=== PATIENT | female | born 2000 | race Hispanic/Latino ===

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

== ENCOUNTER 2021-07-27 16:12 | Emergency (ER) | payer OTHER ==
--- NOTE | 2021-07-27 16:55 | ER ---
Nurse's Notes [facility] Name: Shady Dnois Age: 20 yrs Sex: Female : 2000 Arrival Date: 07/27/2021 Time: 16:16 Bed 9 Private MD: Diagnosis: Puncture wound without foreign body, left foot Presentation: 07/27 16:45 Chief complaint: Patient states: stepped on misael nail getting out of car; went through ld1 cro shoe. no bleeding at this time. Coronavirus screen: Vaccine status: Patient reports being unvaccinated. Client denies travel out of the [place] in the last 14 days. Ebola Screen: Patient negative for fever greater than or equal to 101.5 degrees Fahrenheit, and additional compatible Ebola Virus Disease symptoms Patient denies exposure to infectious person. Patient denies travel to an Ebola-affected area in the 21 days before illness onset. Initial Sepsis Screen: Does the patient meet any 2 criteria? No. Patient's initial sepsis screen is negative. Does the patient have a suspected source of infection? No. Patient's initial sepsis screen is negative. Risk Assessment: Do you want to hurt yourself or someone else? Patient reports no desire to harm self or others. Onset of symptoms was July 27, 2021. 16:45 Method Of Arrival: Ambulatory ld1 16:45 Acuity: OWEN 4 ld1 Triage Assessment: 16:47 General: Appears in no apparent distress. comfortable, slender, well groomed, well ld1 developed, well nourished, Behavior is calm, cooperative, appropriate for age. Pain: Complains of pain in right foot. REJECT OPENER: 16:47 LMP 06/2021 ld1 Historical: - PMHx: 16:46 UTI; ld1 - Immunization history:: Adult Immunizations up to date. - Social history:: Smoking status: Patient denies any tobacco usage or history of. Vital Signs: 16:45 BP 112 / 78; Pulse 78; Resp 18; Temp 98.7; Pulse Ox 100% ; Weight 54.43 kg; Height 5 ld1 ft. 9 in. (175.26 cm); Pain 2/10; 16:45 Body Mass Index 17.72 (54.43 kg, 175.26 cm) ld1 ED Course: 16:16 Patient arrived in ED. as 16:42 Tiago Marquez PA is PHCP. ld1 16:42 Ike Mercer MD is Attending Physician. ld1 16:46 Triage completed. ld1 16:47 Arm band placed on right wrist. EKG completed in triage. Results shown to MD. ld1 Administered Medications: 16:56 Drug: Tetanus-Diphtheria Toxoid Adult 0.5 ml {H[employer]ulic [employer] Installer: [employer]. Exp: ld1 12/03/2022. Lot #: [id number]. } Route: IM; Site: right deltoid; 16:56 Follow up: Response: No adverse reaction ld1 Outcome: 16:54 Discharge ordered by . [email or web address] 17:02 Patient left the ED. Signatures: Carlie Snow Shelby, RN RN Tiago Marquez PA PA jr8 Ingrid Chen RN RN ld1
--- NOTE | 2021-07-27 16:55 | EDPHYS ---
Physician Documentation [facility] Name: Shady Donis Age: 20 yrs Sex: Female : 2000 Arrival Date: 07/27/2021 Time: 16:16 Bed 9 Private MD: ED Physician Ike Mercer HPI: 07/27 16:56 This 20 yrs old Female presents to ER via Ambulatory with complaints of jr8 Puncture Wound To Foot - stepped on nail. 16:56 The complaints affect the left foot. Onset: The symptoms/episode began/occurred jr8 acutely, today. Associated signs and symptoms: The patient has no apparent associated signs or symptoms. Severity of symptoms: At their worst the symptoms were mild, in the emergency department the symptoms are unchanged. The patient has not experienced similar symptoms in the past. Patient stated that she was stepping out of her car and stepped on a nail causing puncture wound to the left foot. Was able to take the nail out without any problem.. 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 - Social history:: Smoking status: Patient denies any tobacco usage or history of. ROS: 16:56 MS/extremity: Positive for pain, puncture, swelling, tenderness, of the left foot. jr8 16:56 Skin: Positive for puncture. 16:56 All other systems are negative. jr8 Exam: 16:56 Constitutional: This is a well developed, well nourished patient who is awake, alert, jr8 and in no acute distress. Cardiovascular: Regular rate and rhythm with a normal S1 and S2. No gallops, murmurs, or rubs. Normal PMI, no JVD. No pulse deficits. Respiratory: Lungs have equal breath sounds bilaterally, clear to auscultation and percussion. No rales, rhonchi or wheezes noted. No increased work of breathing, no retractions or nasal flaring. Skin: Warm, dry with normal turgor. Normal color with no rashes, no lesions, and no evidence of cellulitis. Neuro: Awake and alert, GCS 15, oriented to person, place, time, and situation. Motor strength 5/5 in all extremities. Sensory grossly intact. 16:56 Musculoskeletal/extremity: Extremities: grossly normal except: noted in the left foot: Small puncture wound noted to the bottom aspect of the left foot near the ball of the foot. No bleeding at this time., ROM: intact in all extremities, Circulation is intact in all extremities. Sensation intact. Vital Signs: 16:45 BP 112 / 78; Pulse 78; Resp 18; Temp 98.7; Pulse Ox 100% ; Weight 54.43 kg; Height 5 ld1 ft. 9 in. (175.26 cm); Pain 2/10; 16:45 Body Mass Index 17.72 (54.43 kg, 175.26 cm) ld1 MDM: 16:50 Patient medically screened. jr8 16:51 Data reviewed: vital signs, nurses notes, and as a result, I will discharge patient. jr8 Data interpreted: Pulse oximetry: on room air is 100 %. Interpretation: normal. Counseling: I had a detailed discussion with the patient and/or guardian regarding: the historical points, exam findings, and any diagnostic results supporting the discharge/admit diagnosis, the need for outpatient follow up, a family practitioner, to return to the emergency department if symptoms worsen or persist or if there are any questions or concerns that arise at home. ED course: Close return precautions given to patient as puncture wound can become quite infected especially on bottom of foot. Will be on Abx for the time being and had tetanus updated. Patient good with this and will f/u or come back if worse . Administered Medications: 16:56 Drug: Tetanus-Diphtheria Toxoid Adult 0.5 ml {Quirk Sander: [employer]. Exp: ld1 12/03/2022. Lot #: [id number]. } Route: IM; Site: right deltoid; 16:56 Follow up: Response: No adverse reaction ld1 Disposition: 18:18 Co-signature as Attending Physician, Ike Mercer MD I agree with the assessment and rn plan of care. Attestation: The patient's history, exam findings, diagnostics, and a summary of any interventions or procedures was reviewed in detail with Tiago THORNTON. Disposition Summary: 07/27/21 16:54 Discharge [facility] Condition: Stable jr8 Diagnosis - Puncture wound without foreign body, left foot jr8 Followup: jr8 - With: Private Physician - When: 5 - 6 days - Reason: Wound Recheck, Recheck today's complaints, Continuance of care, Re-evaluation by your physician Discharge Instructions: - Discharge Summary Sheet jr8 - Puncture Wound jr8 Forms: - Medication Reconciliation Form jr8 - Thank You Letter jr8 - Antibiotic Education jr8 - Prescription Opioid Use jr8 Prescriptions: - Doxycycline Monohydrate 100 mg Oral Tablet - take 1 tablet by ORAL route every 12 hours for 10 days; 20 tablet; Refills: 0, jr8 Product Selection Permitted Signatures: Ike Mercer MD MD rn Roszak, Josh, PA PA jr8 Ingrid Chen RN RN ld1
[2021-07-27] MEDS ORDERED: TETANUS & DIPHTHERIA TOX,ADULT 0.5 ML VIAL ONE (16:56)
[2021-07-27 17:30] VITALS: BP 112/78; TEMP 98.7; O2SAT 100
== END 2021-07-27 17:02 | disposition home or self-care (01) ==
LOC: ER 16:12
DX: S91.332A Puncture wound without foreign body, left foot, initial encounter (principal); Z23 Encounter for immunization
CPT/HCPCS: 90471; 90714; 99282

== ENCOUNTER 2022-12-03 11:39 | Emergency (ER) | payer OTHER ==
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
[2022-12-03 14:39] VITALS: TEMP 97.9
[2022-12-03 14:41] VITALS: O2SAT 100
[2022-12-03 14:45] VITALS: BP 120/73
== END 2022-12-03 14:34 ==
LOC: ER 11:39
DX: O26.892 Other specified pregnancy related conditions, second trimester (principal); R10.2 Pelvic and perineal pain; O30.032 Twin pregnancy, monochorionic/diamniotic, second trimester; V49.50XA Passenger injured in collision with unspecified motor vehicles in traffic accident, initial encounter; Z3A.19 19 weeks gestation of pregnancy
CPT/HCPCS: 76815

== ENCOUNTER → 2023-09-21 | Emergency (ER) | payer OTHER ==
[~2023-09-21] MED LIST: FAMOTIDINE 20 MG/2 ML VIAL IV ONE; MORPHINE 4 MG/ML SYR ONE; NA CHLORIDE 0.9% 1,000 ML ONE; ONDANSETRON 4 MG/2 ML VIAL ONE
[2023-09-21 10:44] LABS: Absolute Lymphocytes (CBC) 1.3 K/uL (0.7-4.9); Basophils % 0.4 % (0-1.3); Hematocrit 39.1 % (36.0-45.0); Lymphocytes % 14.2 % (15.3-44.8); MCV 93.3 fL (80-100); MPV 8.8 fL (7.6-11.3); Platelets 304 thou/uL (152-406); RBC Red Blood Cell Count 4.19 M/uL (3.86-4.86)
[2023-09-21 11:06] LABS: Albumin 4.2 g/dL (3.4-5.0); Anion Gap 11.7 mEq/L (5.0-15.0); Bilirubin Total 0.4 mg/dL (0.2-1.0); Potassium 3.7 mEq/L (3.5-5.1); Protein, Total 8.3 g/dL (6.4-8.2)
[2023-09-21 12:23] LABS: Transitional Epithelial <5 /HPF (None Seen); Urine Bacteria <20 /HPF (<20); Urine Mucus Slight /HPF (None Seen); Urine RBC >50 /HPF (None Seen)
[2023-09-21 12:24] LABS: Specific Gravity 1.026 (1.005-1.030)
--- NOTE | 2023-09-21 12:44 | RAD REPORT ---
EXAM DESCRIPTION: CTAbdomen Pelvis W Contrast - 09/21/2023 12:32 pm CLINICAL HISTORY: ABD PAIN COMPARISON: No comparisons TECHNIQUE: CT of the abdomen and pelvis was performed with IV contrast. All CT scans are performed using dose optimization technique as appropriate and may include automated exposure control or mA/KV adjustment according to patient size. FINDINGS: Lower chest: No acute abnormality. Liver: No acute abnormality or suspicious lesions. Biliary: No biliary ductal dilatation. Stomach: No significant focal abnormality. Duodenum: No significant focal abnormality. Pancreas: No significant abnormality. Spleen: No significant abnormality. Adrenal: No suspicious lesions. Kidney/ureter: No hydronephrosis. No renal calculi. Retroperitoneum: No retroperitoneal adenopathy. Vascular: No aneurysm. Bowel: Pancolonic and recta wall thickening. Normal appendix . No bowel obstruction. Peritoneum: No ascites or free air. Bladder: Mild circumferential bladder wall thickening. Reproductive: No adnexal masses. Bones: No acute fracture. Other: n/a IMPRESSION: No acute intra-abdominal or pelvic finding. Normal appendix.
--- NOTE | 2023-09-21 13:01 | ER ---
Nurse's Notes [facility] Name: Shady Donis Age: 22 yrs Sex: Female : 2000 Arrival Date: 09/21/2023 Time: 10:26 Bed 2 Private MD: Diagnosis: Lower abdominal pain, unspecified;Nausea with vomiting, unspecified Presentation: 09/20 10:27 Chief complaint: EMS states: "toned out for LLQ pain, N/V/D that started this morning. mb9 Pt states she is currently on her period right now.". Coronavirus screen: Vaccine status: Patient reports being unvaccinated. Ebola Screen: No symptoms or risks identified at this time. Initial Sepsis Screen: Does the patient meet any 2 criteria? No. Patient's initial sepsis screen is negative. Does the patient have a suspected source of infection? No. Patient's initial sepsis screen is negative. Risk Assessment: Do you want to hurt yourself or someone else? Patient reports no desire to harm self or others. Onset of symptoms was September 21, 2023. 10:27 Method Of Arrival: EMS: [facility] mb9 10:27 Acuity: OWEN 3 mb9 Triage Assessment: 10:29 General: Appears uncomfortable, Behavior is cooperative. Pain: Complains of pain in mb9 abdomen Pain radiates to LLQ Pain currently is 10 out of 10 on a pain scale. Quality of pain is described as throbbing, Pain began suddenly, Is continuous. EENT: No signs and/or symptoms were reported regarding the EENT system. Neuro: Adames Agitation-Sedation Scale (RASS): 0 - Alert and Calm Level of Consciousness is awake, alert, obeys commands, Oriented to person, place, time, situation, Appropriate for age. Cardiovascular: Patient's skin is warm and dry. Respiratory: Airway is patent Respiratory effort is even, unlabored, Respiratory pattern is regular, symmetrical, Breath sounds are clear bilaterally. GI: Abdomen is flat, non-distended, Bowel sounds present X 4 quads. Abd is soft Abdomen is tender to palpation in left lower quadrant Reports diarrhea, nausea, vomiting. : No signs and/or symptoms were reported regarding the genitourinary system. Derm: Skin is pink, warm \\T\\ dry. Musculoskeletal: Range of motion: intact in all extremities. 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 - Social history:: Smoking status: Patient denies any tobacco usage or history of. Screenin:[address] [facility] ED Fall Risk Assessment (Adult) History of falling in the last 3 months, mb9 including since admission No falls in past 3 months (0 pts) Confusion or Disorientation No (0 pts) Intoxicated or Sedated No (0 pts) Impaired Gait No (0 pts) Mobility Assist Device Used No (0 pt) Altered Elimination No (0 pt) Score/Fall Risk Level 0 - 2 = Low Risk Oriented to surroundings, Maintained a safe environment, Educated pt \\T\\ family on fall prevention, incl call for assistance when getting out of bed. Abuse screen: Denies threats or abuse. Nutritional screening: No deficits noted. Tuberculosis screening: No symptoms or risk factors identified. Assessment: 10:30 Reassessment: see triage assesssment. mb9 11:29 Reassessment: No changes from previously documented assessment. Patient and/or family mb9 updated on plan of care and expected duration. Pain level reassessed. Patient is alert, oriented x 3, equal unlabored respirations, skin warm/dry/pink. 12:45 Reassessment: Patient and/or family updated on plan of care and expected duration. Pain mb9 level reassessed. Patient is alert, oriented x 3, equal unlabored respirations, skin warm/dry/pink. Patient states feeling better. Patient states symptoms have improved. Vital Signs: 10:27 BP 132 / 75; Pulse 80; Resp 18; Temp 97.9(O); Pulse Ox 100% ; Weight 61.23 kg; Height 5 mb9 ft. 3 in. ; Pain 10/10; 12:00 BP 113 / 83; Pulse 74; Resp 18; Temp 97.8(O); Pulse Ox 100% on R/A; mb9 12:59 BP 124 / 89; Pulse 70; Resp 16; Pulse Ox 100% on R/A; Pain 0/10; mb9 10:27 Body Mass Index 23.91 (61.23 kg, 160.02 cm) mb9 10:27 Pain Scale: Adult mb9 12:59 Pain Scale: Adult mb9 ED Course: 10:27 Patient arrived in ED. mb9 10:27 Haile Dumont DO is Attending Physician. ms3 10:28 Triage completed. mb9 10:29 Arm band placed on. mb9 10:30 Lexi De Los Santos, KIARA is Primary Nurse. mb9 10:32 Placed in gown. Bed in low position. Call light in reach. Side rails up X 1. Provided mb9 Education on: press call light if needed to use restroom. Client placed on continuous cardiac and pulse oximetry monitoring. NIBP monitoring applied. Door closed. Noise minimized. Warm blanket given. 10:32 No provider procedures requiring assistance completed. mb9 10:38 Inserted saline lock: 18 gauge in right antecubital area, using aseptic technique. zm Blood collected. 10:38 Initial lab(s) drawn, by me, sent to lab. zm 10:42 CBC with Diff Sent. mb9 10:42 CMP Sent. mb9 10:42 Lipase Sent. mb9 10:42 Patient maintains SpO2 saturation greater than 95% on room air. mb9 10:43 Cleaned of incontinence. pads given. mb9 12:06 Radiology exam delayed due to test not completed at this time. ls3 12:06 Assisted with bedpan. mb9 12:07 Test, Urine Sent. mb9 12:[address] via stretcher. mb9 12:34 CT Abd/Pelvis - IV Contrast Only In Process Unspecified. EDMS 12:36 Patient moved back from CT. mb9 12:59 IV discontinued, intact, bleeding controlled, No redness/swelling at site. Pressure mb9 dressing applied. 13:00 Brent García DO is Referral Physician. ms3 13:00 Diet: Patient given juice. Tolerated well. mb9 Administered Medications: 10:35 Drug: NS 0.9% IV 1000 ml IV at 1 bolus Per protocol; 1000 mL bolus Route: IV; Rate: 1 mb9 bolus; Site: right antecubital; 12:04 Follow up: Response: No adverse reaction; IV Status: Completed infusion mb9 10:35 Drug: Ondansetron IVP 4 mg IVP once; over 2 minutes Route: IVP; Site: right antecubital;mb9 12:04 Follow up: Response: No adverse reaction mb9 10:38 Drug: Famotidine IVP 20 mg IVP once; dilute with 10 mL 0.9% NaCl; give over 2 minutes mb9 Route: IVP; Site: right antecubital; 12:04 Follow up: Response: No adverse reaction mb9 10:40 Drug: morphine IVP or IV 4 mg IVP once over 4 mins Route: IVP; Infused Over: 4 mins; mb9 Site: right antecubital; 12:04 Follow up: Response: No adverse reaction mb9 Medication: 10:32 VIS not applicable for this client. mb9 Outcome: 13:01 Discharge ordered by . ms3 13:03 Discharged to home via wheelchair, with family, mb9 13:03 Condition: stable 13:03 Discharge instructions given to patient, family, Instructed on discharge instructions, follow up and referral plans. Demonstrated understanding of instructions, follow-up care, medications, Prescriptions given X 1, 13:04 Patient left the ED. mb9 Signatures: Dispatcher [employer] EDMS Darci Pena ls3 Haile Dumont, DO DO ms3 Lenora Snow Mary Beth, RN RN mb9 Corrections: (The following items were deleted from the chart) 12:07 11:29 BP 127 / 110; Pulse 74bpm; Resp 18bpm; Pulse Ox 100% RA; mb9 mb9 12:13 12:07 Urinalysis+U.LAB.BRZ drawn and sent. mb9 EDMS
--- NOTE | 2023-09-21 13:01 | EDPHYS ---
Physician Documentation [facility] Name: Shady Donis Age: 22 yrs Sex: Female : 2000 Arrival Date: 09/21/2023 Time: 10:26 Bed 2 Private MD: ED Physician Haile Dumont HPI: 09/20 10:28 This 22 yrs old Female presents to ER via Unassigned with complaints of ms3 abdominal pain. 10:28 22-year-old female with no past medical history presents to the emergency department ms3 for abdominal pain that began on waking up this morning. Patient rates her pain 10/10 states pain is located in her lower abdomen. Patient endorses nausea, vomiting, diarrhea. Patient states she is currently on her cycle. Patient denies any alleviating or inciting factors. 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 - Social history:: Smoking status: Patient denies any tobacco usage or history of. ROS: 10:28 Constitutional: Negative for fever, and chills. Neck: Negative for injury, pain, and ms3 swelling, Cardiovascular: Negative for chest pain, and palpitations. Respiratory: Negative for shortness of breath, cough, wheezing, and pleuritic chest pain, 10:28 MS/Extremity: Negative for injury and deformity, Skin: Negative for injury, rash, and discoloration, 10:28 Abdomen/GI: Positive for abdominal pain, nausea, vomiting, and diarrhea, Exam: 10:28 Constitutional: This is a well developed, well nourished patient who is awake, alert, ms3 and in no acute distress. Head/Face: Normocephalic, atraumatic. Neck: Trachea midline, no cervical lymphadenopathy. Supple, full range of motion without nuchal rigidity, or vertebral point tenderness. No Meningismus. Chest/axilla: Normal chest wall appearance and motion. Nontender with no deformity. Cardiovascular: Regular rate and rhythm with a normal S1 and S2. No gallops, murmurs, or rubs. Normal PMI, no JVD. No pulse deficits. Respiratory: Lungs have equal breath sounds bilaterally, clear to auscultation and percussion. No rales, rhonchi or wheezes noted. No increased work of breathing, no retractions or nasal flaring. 10:28 Abdomen/GI: Inspection: abdomen appears normal, Bowel sounds: normal, Palpation: moderate abdominal tenderness, in the suprapubic area and right lower quadrant, Vital Signs: 10:27 BP 132 / 75; Pulse 80; Resp 18; Temp 97.9(O); Pulse Ox 100% ; Weight 61.23 kg; Height 5 mb9 ft. 3 in. ; Pain 10/10; 12:00 BP 113 / 83; Pulse 74; Resp 18; Temp 97.8(O); Pulse Ox 100% on R/A; mb9 12:59 BP 124 / 89; Pulse 70; Resp 16; Pulse Ox 100% on R/A; Pain 0/10; mb9 10:27 Body Mass Index 23.91 (61.23 kg, 160.02 cm) mb9 10:27 Pain Scale: Adult mb9 12:59 Pain Scale: Adult mb9 MDM: 10:27 Patient medically screened. ms3 10:28 Differential diagnosis: appendicitis, bowel obstruction, diverticulitis, non-specific ms3 abd pain. 13:01 Data reviewed: vital signs, nurses notes, lab test result(s), radiologic studies, and ms3 as a result, I will discharge patient. I considered the following discharge prescriptions or medication management in the emergency department Medications were administered in the Emergency Department. See MAR. Historians other than the Patient: EMS: [facility]. Counseling: I had a detailed discussion with the patient and/or guardian regarding the historical points, exam findings, and any diagnostic results supporting the discharge/admit diagnosis, lab results, radiology results, the need for outpatient follow up, to return to the emergency department if symptoms worsen or persist or if there are any questions or concerns that arise at home. Special discussion: Based on the patient's Hx, exam, and Dx evaluation, there is no indication for emergent surgery or inpatient Tx. It is understood by the patient/guardian that if the Sx's persist or worsen they need to return immediately for re-evaluation. ED course: Discussed labs with patient. Patient is without urinary symptoms at this time. UA likely reveals sterile pyuria. Patient to follow-up with her primary care physician in 2 to 3 days for reevaluation. All questions were answered. Return precautions discussed include worsening symptoms, or any other concerns. On reevaluation patient is improved, alert and oriented x 4, no apparent distress, nontoxic-appearing, ambulatory emerged primary, speaking full sentences. 09/20 10:27 Order name: CBC with Diff; Complete Time: 12:08 ms3 09/20 10:27 Order name: CMP; Complete Time: 12:08 ms3 09/20 10:27 Order name: Lipase; Complete Time: 12:08 ms3 09/20 10:27 Order name: Test, Urine; Complete Time: 12:34 ms3 09/20 12:14 Order name: Urine Microscopic Only; Complete Time: 12:34 EDMS 09/20 10:27 Order name: CT Abd/Pelvis - IV Contrast Only; Complete Time: 12:52 ms3 09/20 10:27 Order name: IV Saline Lock; Complete Time: 10:41 ms3 09/20 10:27 Order name: Labs collected and sent; Complete Time: 10:41 ms3 Administered Medications: 10:35 Drug: NS 0.9% IV 1000 ml IV at 1 bolus Per protocol; 1000 mL bolus Route: IV; Rate: 1 mb9 bolus; Site: right antecubital; 12:04 Follow up: Response: No adverse reaction; IV Status: Completed infusion mb9 10:35 Drug: Ondansetron IVP 4 mg IVP once; over 2 minutes Route: IVP; Site: right antecubital;mb9 12:04 Follow up: Response: No adverse reaction mb9 10:38 Drug: Famotidine IVP 20 mg IVP once; dilute with 10 mL 0.9% NaCl; give over 2 minutes mb9 Route: IVP; Site: right antecubital; 12:04 Follow up: Response: No adverse reaction mb9 10:40 Drug: morphine IVP or IV 4 mg IVP once over 4 mins Route: IVP; Infused Over: 4 mins; mb9 Site: right antecubital; 12:04 Follow up: Response: No adverse reaction mb9 Disposition Summary: 09/21/23 13:01 Discharge Ordered Notes: Location: Home ms3 Condition: Stable ms3 Diagnosis - Lower abdominal pain, unspecified ms3 - Nausea with vomiting, unspecified ms3 Followup: ms3 - With: Brent García DO - When: 2 - 3 days - Reason: Recheck today's complaints Discharge Instructions: - Discharge Summary Sheet ph - Abdominal Pain, Adult ms3 - Nausea and Vomiting, Adult ms3 Forms: - Work release form ph - Medication Reconciliation Form ms3 - Thank You Letter ms3 - Antibiotic Education ms3 - Prescription Opioid Use ms3 - Patient Portal Instructions ms3 - Leadership Thank You Letter ms3 Prescriptions: - ondansetron 4 mg Oral Tablet,disintegrating - take 1 tablet ORAL route every 8 hours; 15 tablet; Refills: 0, Product ms3 Selection Permitted Signatures: Dispatcher [employer] EDMS Haile Dumont DO DO ms3 Lexi De Los Santos RN RN mb9 Corrections: (The following items were deleted from the chart) 12:13 10:28 Urinalysis+U.LAB.BRZ ordered. EDMS EDMS
[2023-09-21 13:36] VITALS: BP 124/89; TEMP 97.8; O2SAT 100
== END ==
LOC: ER 10:26
DX: R10.31 Right lower quadrant pain (principal); R11.2 Nausea with vomiting, unspecified
CPT/HCPCS: 96361; 85025; 36415; 81025; 81015; 83690; 80053; 74177; 96375; 96374; 99285; Q9967; J2405; J7030